=== PATIENT | female | born 1950 | race African-American/Black ===

== ENCOUNTER 2016-09-28 09:56 | Outpatient (CLI) | payer MEDICARE, MEDICAID ==
[2016-09-28 11:09] LABS: Anion Gap 14 mmol/L (10-20); BUN (Urea Nitrogen) 29 mg/dL (9.8-20.1); Calc. Creatinine Clearance 0 mL/min (70-130); Calcium 9.7 mg/dL (7.8-10.44); Carbon Dioxide 26 mmol/L (23-31); Chloride 108 mmol/L (98-107); Estimated GFR-MDRD 35; Glucose 114 mg/dL (80-115); Potassium 4.2 mmol/L (3.5-5.1); Sodium 144 mmol/L (136-145)
[2016-09-28 17:13] LABS: Creatinine, Urine 60.96 mg/dL (47-110)
== END 2016-09-28 09:57 | disposition home or self-care (01) ==
LOC: MADLAB 09:56
PROVIDERS: ATTEND Internal Medicine Nephrology
DX: I15.0 Renovascular hypertension (principal); N18.3 Chronic kidney disease, stage 3 (moderate)
CPT/HCPCS: 36415; 80048; 82570; 84156

== ENCOUNTER 2016-10-09 10:22 | Outpatient (CLI) | payer MEDICARE, MEDICAID ==
--- NOTE | 2016-10-09 12:29 | ULT ---
RENAL SONOGRAM HISTORY: Right flank pain. Renal failure. FINDINGS: The right kidney is 7.1 cm in length and the left is 7.8 cm. Each shows diffuse cortical atrophy. No hydronephrosis or mass is evident. The urinary bladder is incompletely distended. IMPRESSION: 1. Atrophy of each kidney. 2. No significant abnormalities are demonstrated. POS: [facility]
== END 2016-10-09 10:23 | disposition home or self-care (01) ==
LOC: MADULT 10:22
PROVIDERS: ATTEND Family Medicine
DX: N18.3 Chronic kidney disease, stage 3 (moderate) (principal); C54.1 Malignant neoplasm of endometrium; C7A.8 Other malignant neuroendocrine tumors
CPT/HCPCS: 76770

== ENCOUNTER 2017-10-08 13:25 | Emergency (ER) | payer MEDICARE, MEDICAID ==
[~2017-10-08 13:25] MED LIST: Sodium Chloride 0.9% 1,000 ML BAG ONE
[2017-10-08 14:12] LABS: Hemoglobin 12.5 g/dL (12.0-16.0); Mean Corpuscular Hemoglobin 28.7 pg (27.0-31.0); Mean Corpuscular Volume 89.8 fl (81.0-99.0); Mean Platelet Volume 5.5 fL (7.4-10.4); Platelet Count 398 thou/uL (130-400); Red Blood Cell (RBC) Count 4.34 mill/uL (4.20-5.40)
[2017-10-08 14:25] LABS: Anisocytosis SLIGHT = 6-15 cells (100X) (0-5/hpf); Band 1 % (5-11); Lymphocytes 15 % (21-51); MDiff Complete? YES; Manual Diff?? YES; Monocytes 2 % (0-10); Neutrophil 82 % (42-75)
[2017-10-08 14:26] LABS: PLT Morphology Comment Appears Adequate
[2017-10-08 14:28] LABS: ALT (SGPT) 25 U/L (8-55); AST (SGOT) 40 U/L (5-34); Albumin 3.6 g/dL (3.4-4.8); Alkaline Phosphatase 143 U/L (40-150); Anion Gap 21 mmol/L (10-20); BUN (Urea Nitrogen) 54 mg/dL (9.8-20.1); Bilirubin, Total 0.6 mg/dL (0.2-1.2); Calc. Creatinine Clearance 0 mL/min (70-130); Calcium 9.1 mg/dL (7.8-10.44); Carbon Dioxide 28 mmol/L (23-31); Chloride 94 mmol/L (98-107); Estimated GFR-MDRD 18; Globulin 3.4 g/dL (2.4-3.5); Glucose 92 mg/dL (80-115); Lipase 32 U/L (8-78); Potassium 5.8 mmol/L (3.5-5.1); Sodium 137 mmol/L (136-145)
[2017-10-08] MEDS ORDERED: hydrALAZINE 10 MG TAB ONE (14:49)
[2017-10-08 14:50] LABS: Bilirubin Small (Negative); Blood, Urine Negative (Negative); Clarity Clear (Clear); Glucose, Urine (Dipstick) Negative (Negative); Leukocyte Negative (Negative); Nitrite Negative (Negative); Protein, Urine (Dipstick) 30 mg/dL (Neg-Trace); Specific Gravity, Urine 1.015 (1.005-1.030); Urobilinogen 0.2 mg/dL (0.2-1.0); pH, Urine 5.5 (5.0-9.0)
[2017-10-08 15:00] LABS: Bacteria/HPF Rare-Few HPF (None Seen); Crystals/HPF 2+ AMORPH URATES HPF (Negative); RBC/HPF 0-3 HPF (0-3); Squamous Epithelial 0-3 HPF (0-3); WBC/HPF 0-3 HPF (0-3)
--- NOTE | 2017-10-08 15:34 | RAD ---
PORTABLE CHEST: History: Right sided pain. Comparison: 01-23-10 FINDINGS: Heart size is slightly enlarged. A left sided Mediport catheter is present. Lungs are clear of infilt rates. IMPRESSION: Minimal cardiomegaly. No acute process. POS: [facility]
--- NOTE | 2017-10-08 16:02 | CT ---
ABDOMEN AND PELVIC CT SCAN WITHOUT IV CONTRAST: Date: 10/08/17 HISTORY: 67-year-old female with history of abdominal pain. Elevated creatinine. Foul-smelling urine. Right-si ded paralysis. FINDINGS: The lung bases appear clear of acute process. There is minimal cardiomegaly. Moderate sliding hiatal hernia. Very small, somewhat atrophic-appearing, right kidney. Left kidney is small, but much larger in size. Involving the lower pole anteriorly of the left kidney, there is an approximately 2.9 cm nicholas meter somewhat hyperdense mass, probably a hemorrhagic cyst. In the upper pole of the left kidney, th ere is a lower attenuation mass which has attenuation coefficient consistent with that of a cyst. The liver appears unremarkable. A normal gallbladder is not seen. The pancreas and spleen are unremarkab le. There are some moderately gas and fluid distended loops of colon and small bowel with air and flu id levels within minimally dilated colon and small bowel. There appear to be postoperative changes wi th what appears to be probable prior right hemicolectomy. No evidence for free intraperitoneal fluid. No abscess. IMPRESSION: Nonspecific dilatation with air and fluid distention of colon and small bowel loops, which certainly may be related to diarrhea, ileus, or nonspecific enterocolitis, which I favor over some type of acu te obstructing process. Air and fluid is seen extending into the rectum. Very small atrophic right ki dney with probable hemorrhagic cyst off the anterior aspect of the lower left kidney and a cyst exten ding off the upper pole of the left kidney. Normal gallbladder is not seen. Moderate size hiatal [place]. No abscess, adenopathy, or significant abnormal fluid collection. Slightly nodular left adrenal g land, nonspecific, possibly an adenoma. No renal calculus or acute obstruction. Unremarkable appea ring urinary bladder. POS: [facility]
== END 2017-10-08 17:38 | disposition short-term general hospital (02) ==
LOC: MADERS 13:25
DX: N17.9 Acute kidney failure, unspecified (principal); I12.9 Hypertensive chronic kidney disease with stage 1 through stage 4 chronic kidney disease, or unspecified chronic kidney disease; N18.9 Chronic kidney disease, unspecified; K52.9 Noninfective gastroenteritis and colitis, unspecified; E87.5 Hyperkalemia; I69.359 Hemiplegia and hemiparesis following cerebral infarction affecting unspecified side; I69.320 Aphasia following cerebral infarction; E03.9 Hypothyroidism, unspecified; M10.9 Gout, unspecified; E78.5 Hyperlipidemia, unspecified; F17.210 Nicotine dependence, cigarettes, uncomplicated; Z79.82 Long term (current) use of aspirin; Z79.899 Other long term (current) drug therapy
CPT/HCPCS: 36415; 51701; 71045; 74176; 80053; 81003; 81015; 83605; 83690; 85025; 93005; 96360; 96361; A4353; J7050

== ENCOUNTER 2017-10-25 14:39 | Emergency (ER) | payer MEDICARE, MEDICAID ==
[~2017-10-25 14:39] MED LIST changes: -Sodium Chloride 0.9% 1,000 ML BAG ONE; +Sodium Chloride 0.9% 500 ML BAG ONE
[2017-10-25 15:47] LABS: Bacteria/HPF 4+ HPF (None Seen); Bilirubin Negative (Negative); Blood, Urine Negative (Negative); Clarity Cloudy (Clear); Glucose, Urine (Dipstick) Negative (Negative); Leukocyte Small (Negative); Nitrite Negative (Negative); Protein, Urine (Dipstick) 100 mg/dL (Neg-Trace); RBC/HPF 0-3 HPF (0-3); Specific Gravity, Urine 1.015 (1.005-1.030); Squamous Epithelial None Seen HPF (0-3); Urobilinogen 0.2 mg/dL (0.2-1.0); pH, Urine 8.5 (5.0-9.0)
[2017-10-25 16:11] LABS: Band 3 % (5-11); Hemoglobin 10.9 g/dL (12.0-16.0); Hypochromia SLIGHT = 6-15 cells (100X) (0-5/hpf); Lymphocytes 19 % (21-51); MDiff Complete? YES; Mean Corpuscular HGB CONC 29.9 g/dL (32.0-36.0); Mean Corpuscular Volume 90.5 fl (81.0-99.0); Mean Platelet Volume 5.8 fL (7.4-10.4); Monocytes 3 % (0-10); Neutrophil 75 % (42-75); PLT Morphology Comment Appears Adequate; Platelet Count 378 thou/uL (130-400); RBC Distribution Width 19.7 % (11.5-14.5); Red Blood Cell (RBC) Count 4.05 mill/uL (4.20-5.40); White Blood Cell (WBC) Count 7.2 thou/uL (4.8-10.8)
[2017-10-25] MEDS ORDERED: cefTRIAXone\\ROCEPHIN 1 GM VIAL ONE (16:18)
[2017-10-25 16:22] LABS: ALT (SGPT) 27 U/L (8-55); AST (SGOT) 36 U/L (5-34); Alkaline Phosphatase 107 U/L (40-150); Anion Gap 18 mmol/L (10-20); BUN (Urea Nitrogen) 26 mg/dL (9.8-20.1); Bilirubin, Total 0.4 mg/dL (0.2-1.2); Calc. Creatinine Clearance 0 mL/min (70-130); Calcium 8.7 mg/dL (7.8-10.44); Carbon Dioxide 23 mmol/L (23-31); Chloride 106 mmol/L (98-107); Estimated GFR-MDRD 32; Globulin 2.9 g/dL (2.4-3.5); Glucose 93 mg/dL (80-115); Potassium 5.6 mmol/L (3.5-5.1); Protein, Total 5.9 g/dL (6.0-8.3); Sodium 141 mmol/L (136-145)
== END 2017-10-25 17:25 | disposition short-term general hospital (02) ==
LOC: MADERS 14:39
DX: E86.0 Dehydration (principal); N17.9 Acute kidney failure, unspecified; N39.0 Urinary tract infection, site not specified; I12.9 Hypertensive chronic kidney disease with stage 1 through stage 4 chronic kidney disease, or unspecified chronic kidney disease; N18.9 Chronic kidney disease, unspecified; E03.9 Hypothyroidism, unspecified; E78.5 Hyperlipidemia, unspecified; K21.9 Gastro-esophageal reflux disease without esophagitis; M10.9 Gout, unspecified; F17.210 Nicotine dependence, cigarettes, uncomplicated; Z86.73 Personal history of transient ischemic attack (TIA), and cerebral infarction without residual deficits; Z79.899 Other long term (current) drug therapy; Z79.82 Long term (current) use of aspirin
CPT/HCPCS: 51701; 80053; 81003; 81015; 85025; 87040; 87077; 87086; 87149; 87186; 96374; A4353; J0696; J7050

== ENCOUNTER 2021-11-10 09:37 | Outpatient (CLI) | payer MEDICARE, MEDICAID ==
[2021-11-10 10:12] LABS: Hemoglobin 12.2 g/dL (12.0-16.0); Mean Corpuscular HGB CONC 30.1 g/dL (32.0-36.0); Mean Corpuscular Hemoglobin 27.6 pg (27.0-31.0); Mean Corpuscular Volume 91.9 fL (78.0-98.0); Platelet Count 264 thou/uL (130-400); RBC Distribution Width 16.7 % (11.5-14.5)
[2021-11-10 10:26] LABS: ALT (SGPT) 21 U/L (8-55); AST (SGOT) 31 U/L (5-34); Albumin 3.2 g/dL (3.4-4.8); Alkaline Phosphatase 85 U/L (40-110); Anion Gap 18 mmol/L (10-20); BUN (Urea Nitrogen) 55 mg/dL (9.8-20.1); Bilirubin, Total 0.3 mg/dL (0.2-1.2); Calc. Creatinine Clearance 0 mL/min (70-130); Calcium 8.8 mg/dL (7.8-10.44); Carbon Dioxide 29 mmol/L (23-31); Chloride 97 mmol/L (98-107); Globulin 2.7 g/dL (2.4-3.5); Glucose 89 mg/dL (83-110); Potassium 4.8 mmol/L (3.5-5.1); Protein, Total 5.9 g/dL (5.8-8.1); Sodium 139 mmol/L (136-145)
== END 2021-11-10 09:38 | disposition home or self-care (01) ==
LOC: MADLAB 09:37
PROVIDERS: ATTEND Family Medicine
DX: E03.9 Hypothyroidism, unspecified (principal)
CPT/HCPCS: 80053; 84443; 85027

== ENCOUNTER 2022-03-10 07:41 | Emergency (ER) | payer MEDICARE, MEDICAID ==
[2022-03-10] MEDS ORDERED: Ondansetron PF 4 MG/2 ML Vial ONE ×2 (08:22→11:10)
[2022-03-10] MEDS ORDERED: Sodium Chloride 0.9% 1,000 ML ONE ×2 (08:22→10:02)
[2022-03-10 08:37] LABS: ALT (SGPT) 36 U/L (8-55); AST (SGOT) 45 U/L (5-34); Albumin 4.3 g/dL (3.4-4.8); Alkaline Phosphatase 161 U/L (40-110); Anion Gap 26 mmol/L (10-20); Anisocytosis SLIGHT = 6-15 cells (100X) (0-5/hpf); BUN (Urea Nitrogen) 35 mg/dL (9.8-20.1); Band 12 % (5-11); Bilirubin, Total 0.5 mg/dL (0.2-1.2); Calc. Creatinine Clearance 0 mL/min (70-130); Calcium 11.2 mg/dL (7.8-10.44); Carbon Dioxide 27 mmol/L (23-31); Chloride 92 mmol/L (98-107); Estimated GFR 16; Globulin 4.8 g/dL (2.4-3.5); Glucose 150 mg/dL (83-110); Hypochromia SLIGHT = 6-15 cells (100X) (0-5/hpf); Lipase 38 U/L (8-78); Lymphocytes 3 % (21-51); MDiff Complete? YES; Mean Corpuscular HGB CONC 29.8 g/dL (32.0-36.0); Mean Corpuscular Hemoglobin 28.4 pg (27.0-31.0); Mean Corpuscular Volume 95.2 fL (78.0-98.0); Mean Platelet Volume 7.2 fL (7.4-10.4); Monocytes 4 % (0-10); Neutrophil 81 % (42-75); Platelet Count 429 thou/uL (130-400); Platelet Morphology Comment Appears Increased; Potassium 4.4 mmol/L (3.5-5.1); Protein, Total 9.1 g/dL (5.8-8.1); RBC Distribution Width 15.4 % (11.5-14.5); Red Blood Cell (RBC) Count 5.65 mill/uL (4.20-5.40); Sodium 141 mmol/L (136-145)
[2022-03-10] MEDS ORDERED: Sodium Chloride 0.9% 100 ML ONE (09:21)
[2022-03-10] MEDS ORDERED: Piperacillin/Tazobactam 3.375 GM VIAL ONE (09:21)
[2022-03-10 10:11] LABS: Bilirubin Negative (Negative); Blood, Urine Negative (Negative); Clarity Cloudy (Clear); Glucose, Urine (Dipstick) Negative (Negative); Ketone, Urine Negative (Negative); Leukocyte Large (Negative); Nitrite Negative (Negative); Protein, Urine (Dipstick) 100 mg/dL (Neg-Trace); Specific Gravity, Urine 1.025 (1.005-1.030); Urobilinogen 0.2 mg/dL (Less than 2); pH, Urine 5.5 (5.0-9.0)
[2022-03-10 10:19] LABS: Bacteria/HPF 4+ HPF (None Seen); RBC/HPF 0-3 HPF (0-3); Squamous Epithelial 0-3 HPF (0-3); WBC/HPF Greater Than 50 HPF (0-3)
[2022-03-10] MEDS ORDERED: Vancomycin HCl 500 MG VIAL ONE (10:20)
[2022-03-10] MEDS ORDERED: Sodium Chloride 0.9% 250 ML 250 ML ONE (10:20)
[2022-03-10 13:18] LABS: Lactic Acid 3.1 mmol/L (0.5-2.2)
== END 2022-03-10 14:09 | disposition short-term general hospital (02) ==
LOC: MADERS 07:41
DX: A41.9 Sepsis, unspecified organism (principal); N39.0 Urinary tract infection, site not specified; I12.9 Hypertensive chronic kidney disease with stage 1 through stage 4 chronic kidney disease, or unspecified chronic kidney disease; N18.9 Chronic kidney disease, unspecified; K21.9 Gastro-esophageal reflux disease without esophagitis; E03.9 Hypothyroidism, unspecified; E78.5 Hyperlipidemia, unspecified; M10.9 Gout, unspecified; I69.959 Hemiplegia and hemiparesis following unspecified cerebrovascular disease affecting unspecified side; Z87.891 Personal history of nicotine dependence; Z85.41 Personal history of malignant neoplasm of cervix uteri; Z79.82 Long term (current) use of aspirin; Z79.899 Other long term (current) drug therapy
CPT/HCPCS: 51701; 71250; 74177; 80053; 81003; 81015; 83605; 83690; 85025; 87040; 87077; 87086; 87186; 96361; 96365; 96366; 96367; 96375; 96376; J2405; J2543; J3370; J3490; J7050

== ENCOUNTER 2022-05-24 17:28 | Emergency (ER) | payer MEDICARE, OTHER, MEDICAID ==
[2022-05-24 18:36] LABS: #Eosinphils 0.2 thou/uL (0.0-0.7); #Lymphocytes 1.5 thou/uL (1.20-3.40); #Monocytes 0.7 thou/uL (0.11-0.59); #Neutrophils 6.2 thou/uL (1.40-6.50); %Basophils 0.4 % (0.0-1.0); %Eosinophils 1.8 % (0.0-10.0); %Lymphocytes 17.4 % (21.0-51.0); %Monocytes 7.9 % (0.0-10.0); %Neutrophils 72.5 % (42.0-75.0); Hemoglobin 13.7 g/dL (12.0-16.0); Mean Corpuscular HGB CONC 30.7 g/dL (32.0-36.0); Mean Corpuscular Hemoglobin 29.4 pg (27.0-31.0); Mean Corpuscular Volume 95.5 fl (78.0-98.0); Mean Platelet Volume 6.8 fL (7.4-10.4); Platelet Count 399 10x3/uL (130-400); RBC Distribution Width 14.8 % (11.5-14.5); Red Blood Cell (RBC) Count 4.66 mill/uL (4.20-5.40); White Blood Cell (WBC) Count 8.5 10x3/uL (4.8-10.8)
[2022-05-24 18:50] LABS: ALT (SGPT) 30 U/L (8-55); AST (SGOT) 34 U/L (5-34); Albumin 3.6 g/dL (3.4-4.8); Alkaline Phosphatase 104 U/L (40-110); Anion Gap 18 mmol/L (10-20); BUN (Urea Nitrogen) 35 mg/dL (9.8-20.1); Bilirubin, Total 0.4 mg/dL (0.2-1.2); Calc. Creatinine Clearance 0 mL/min (70-130); Calcium 9.8 mg/dL (7.8-10.44); Carbon Dioxide 25 mmol/L (23-31); Chloride 100 mmol/L (98-107); Estimated GFR 26; Globulin 4.1 g/dL (2.4-3.5); Glucose 125 mg/dL (83-110); Protein, Total 7.7 g/dL (5.8-8.1); Sodium 139 mmol/L (136-145)
[2022-05-24] MEDS ORDERED: Sodium Chloride 0.9% 1,000 ML ONE (18:56)
[2022-05-24 20:27] LABS: Bilirubin Negative (Negative); Blood, Urine Negative (Negative); Clarity Clear (Clear); Glucose, Urine (Dipstick) Negative (Negative); Ketone, Urine Negative (Negative); Leukocyte Negative (Negative); Nitrite Negative (Negative); Protein, Urine (Dipstick) 100 mg/dL (Neg-Trace); Urobilinogen 0.2 mg/dL (Less than 2)
[2022-05-24 20:32] LABS: RBC/HPF None Seen HPF (0-3)
== END 2022-05-24 22:30 ==
LOC: MADERS 17:28
DX: N28.1 Cyst of kidney, acquired (principal); K59.00 Constipation, unspecified; E86.0 Dehydration; I10 Essential (primary) hypertension; E03.9 Hypothyroidism, unspecified; E78.5 Hyperlipidemia, unspecified; K21.9 Gastro-esophageal reflux disease without esophagitis; Z79.82 Long term (current) use of aspirin; Z79.899 Other long term (current) drug therapy; Z87.891 Personal history of nicotine dependence
CPT/HCPCS: 36415; 51701; 74176; 80053; 81003; 81015; 85025; 96360; J7050